=== PATIENT | female | born 1985 | race Two or more races ===

== ENCOUNTER 2016-11-03 13:26 | Emergency (ER) | payer MEDICAID ==
--- NOTE | 2016-11-03 13:54 | ED Physician Chart ---
Chief Complaint/HPI - Patient Information Date Seen:: 11/03/16 Time Seen:: 13:35 Chief Complaint:: dental pain History of Present Illness:: chipped tooth 15 3 days ago. Has appointment with dentist in 6 days. Allergies:: Allergies Allergy/AdvReac Type Severity Reaction Status Date / Time ibuprofen Allergy Verified 11/03/16 13:45 Vitals:: Vital Signs - 8 hr 11/03/16 13:41 Temp 98.1 F HR 74 RR 16 BP 118/86 O2 Sat % 99 Historian:: Patient Review:: Nurse's Note Reviewed Review of Systems - Review of Systems General/Constitutional: No fever, No chills Skin: No skin lesions Head: No headache Eyes: No loss of vision ENT: Other (dental pain) Neck: No neck pain Cardio Vascular: No chest pain Pulmonary: No SOB GI: No nausea, No vomiting G/U: No dysuria, No frequency Musculoskeletal: No bone or joint pain Endocrine: No polyuria Psychiatric: No prior psych history Hematopoietic: No bruising Allergic/Immuno: No urticaria Neurological: No syncope Past Medical History - Past Medical History Past Medical History: No significant medical hx Family History: Heart disease Social History: Non Smoker Surgical History: None Psychiatricy History: None Medication: None Physical Exam - Physical Examination General/Constitutional: Well-developed, well-nourished, Alert, No distress Head: Atraumatic Eyes: Lids, conjuctiva normal, PERRL Skin: Nl inspection, No rash ENMT: External ears, nose nl, TM canals nl, Nasal exam nl Other ENMT comments:: tooth 15; latter anterior cusp fractured off; no swelling or tenderness of adjacent gum ED Septic Shock - . Is Septic Shock (SBP<90, OR Lactate>4 mmol\L) present?: No - <6hrs of presentation: Vital Signs: Vital Signs - 8 hr 11/03/16 13:41 Temp 98.1 F HR 74 RR 16 BP 118/86 O2 Sat % 99 Reassessment (Disposition) - Reassessment Reassessment Condition:: Unchanged - Diagnosis Diagnosis:: tooth 15 fracture; dental pain - Aftercare/Follow up Instructions Medication Prescribed:: [place] 10/325 # 16 Sig 1 QID PRN pain - Patient Disposition Discharge/Transfer:: Home Condition at Disposition:: Stable, Unchanged ED Discharge Plan - Patient Disposition Instructions: Toothache-Brief
== END 2016-11-03 13:55 | disposition home or self-care (01) ==
LOC: ER 13:26
DX: S02.5XXA Fracture of tooth (traumatic), initial encounter for closed fracture (principal); Z88.6 Allergy status to analgesic agent; X58.XXXA Exposure to other specified factors, initial encounter; Y93.89 Activity, other specified; Y92.89 Other specified places as the place of occurrence of the external cause; Y99.8 Other external cause status
CPT/HCPCS: Z7502